=== PATIENT | female | born 1990 ===

== ENCOUNTER → 2021-12-08 | Outpatient (CLI) | payer SELFPAY | LOC: LAB SHORT 18:54 | DX: Z32.01 Encounter for pregnancy test, result positive (principal) | CPT/HCPCS: 84702 ==

== ENCOUNTER → 2022-01-08 | Outpatient (CLI) | payer OTHER ==
[2022-01-08 13:31] LABS: Source, Urine Clean Catch
[2022-01-08 16:18] LABS: Bacteria Mod /hpf; Red Blood Cells, Urine 0-2 /hpf (0-2); Squamous Epithelial Cells Mod /hpf (Few); White Blood Cells, Urine 25-50 /hpf (0-5)
== END | disposition home or self-care (01) ==
LOC: LAB SHORT 13:22
PROVIDERS: Obstetrics & Gynecology
DX: Z34.81 Encounter for supervision of other normal pregnancy, first trimester (principal)
CPT/HCPCS: 81015; 87086

== ENCOUNTER → 2022-04-02 | Outpatient (CLI) | payer OTHER ==
[2022-04-02 14:08] LABS: Free Thyroxine 1.02 ng/dL (0.70-1.60)
[2022-04-02 14:12] LABS: Thyroid Stimulating Hormone 3.29 uIU/mL (0.360-4.800); Triiodothyronine, Free 1.25 pg/mL (2.18-3.98)
== END | disposition home or self-care (01) ==
LOC: LAB 10:21 → LAB SHORT 10:21
PROVIDERS: Obstetrics & Gynecology
DX: E02 Subclinical iodine-deficiency hypothyroidism (principal)
CPT/HCPCS: 36415; 84439; 84443; 84481